=== PATIENT | male | born 1945 | race Caucasian/White ===

== ENCOUNTER 2018-07-19 07:30 | Inpatient (IN) | payer MEDICARE ==
[~2018-07-19] VITALS: Ht 188 cm; Wt 125.9 kg
[~2018-07-19 07:30] MED LIST: ASPI-496 PO; ATOR20TA37 PO; BUPR150T73 PO; CHOL10002 PO; CYCL-259 PO; HYDR-3240 PO; LEUP3.75 INJ; LISI1TAB3 PO; MELA1TAB8 PO; METF500T17 PO; PREG75CA PO; TAMS-11 PO
[2018-07-19] MEDS ORDERED: BACITRACIN 50,000 UNIT ONE (07:51)
[2018-07-19] MEDS ORDERED: THROMBIN 20,000 UNIT VIAL TP ONE (07:51)
[2018-07-19] MEDS ORDERED: NEOSPORIN OINT. PKT 1 PACKET ONE (07:51)
[2018-07-19] MEDS ORDERED: MICROFIBRILLAR COLLAGEN 1 GM TP ONE (07:51)
[2018-07-19] MEDS ORDERED: BUPIVACAINE/EPI 0.5% 1:200K ONE (07:51)
[2018-07-19] MEDS ORDERED: LACTATED RINGERS 1,000 ML IV SCH (14:53)
[2018-07-19] MEDS ORDERED: GABAPENTIN 300 MG CAPSULE PO STA (14:54)
[2018-07-19] MEDS ORDERED: ACETAMINOPHEN 500 MG TABLET PO STA (14:54)
[2018-07-19] MEDS ORDERED: ONDANSETRON ODT 8 MG PO STA (14:54)
[2018-07-19] MEDS ORDERED: PROPOFOL 50 ML ONE ×2 (15:54→17:46)
[2018-07-19] MEDS ORDERED: MIDAZOLAM 1 MG/ML, 2ML ONE (15:55)
[2018-07-19] MEDS ORDERED: FENTANYL PF 250 MCG/5ML ONE (15:55)
[2018-07-19] MEDS ORDERED: PROPOFOL 10 MG/ML, 20ML ONE (15:56)
[2018-07-19] MEDS ORDERED: DEXAMETHASONE 4 MG/ML, 1ML ONE (15:56)
[2018-07-19] MEDS ORDERED: LIDOCAINE-MPF 2% ,5ML ONE (15:59)
[2018-07-19] MEDS ORDERED: LIDOCAINE 4%, 4 ML SYR/CANN TP ONE (16:03)
[2018-07-19] MEDS ORDERED: CEFAZOLIN 1,000 MG ONE (17:07)
[2018-07-19] MEDS ORDERED: SUCCINYLCHOLINE 20 MG/ML, 10ML ONE (17:07)
[2018-07-19] MEDS ORDERED: MEPERIDINE/PF 25MG/0.5ML IVPush PRN (19:30)
[2018-07-19] MEDS ORDERED: ALBUTEROL/IPRATROPIUM 2.5MG/0.5MG, 3 ML NPPB PRN (19:30)
[2018-07-19] MEDS ORDERED: LORazepam 2 MG/ML, 1ML IVPush PRN (19:30)
[2018-07-19] MEDS ORDERED: hydrALAzine 20 MG/ML, 1ML IV PRN (19:30)
[2018-07-19] MEDS ORDERED: LABETALOL 5MG/ML, 20ML IV PRN (19:30)
[2018-07-19] MEDS ORDERED: FENTANYL PF 100 MCG/2ML IV PRN (19:30)
[2018-07-19] MEDS ORDERED: HYDROmorphone 2 MG/ML, 1ML IVPush PRN (19:30)
[2018-07-19] MEDS ORDERED: OXYcodone 5 MG/5 ML ORAL.SOL UDC PO PRN (19:30)
[2018-07-19] MEDS ORDERED: FENTANYL PF 100 MCG/2ML ONE (19:58)
[2018-07-19] MEDS ORDERED: OXYcodone 5 MG/5 ML ORAL.SOL UDC ONE (19:59)
[2018-07-19] MEDS ORDERED: MAGNESIUM HYDROXIDE 8%, 30ML UDC PO PRN (22:00)
[2018-07-19] MEDS ORDERED: morphine SULFATE 10 MG/ML, 1ML IV PRN (22:00)
[2018-07-19] MEDS ORDERED: DIPHENHYDRAMINE 50 MG CAPSULE PO PRN (22:00)
[2018-07-19] MEDS ORDERED: PHARMACY MAY ADJ FOR RENAL FX MC PRN (22:00)
[2018-07-19] MEDS ORDERED: DIPHENHYDRAMINE 50 MG/ML, 1ML IVPush PRN (22:00)
[2018-07-19] MEDS ORDERED: BISACODYL 10 MG SUPP PR PRN (22:00)
[2018-07-19] MEDS ORDERED: CYCLOBENZAPRINE 10 MG TABLET PO PRN (22:00)
[2018-07-19] MEDS ORDERED: ONDANSETRON 2MG/ML, 2ML IV PRN (22:00)
[2018-07-19] MEDS ORDERED: PROMETHAZINE 25 MG/ML, 1ML IM PRN (22:00)
[2018-07-19] MEDS ORDERED: METHOCARBAMOL 1,000 MG in DEXTROSE 5% 100 ML IV ONE (22:00)
[2018-07-19] MEDS ORDERED: DIPHENHYDRAMINE 50 MG/ML, 1ML IM PRN (22:00)
[2018-07-19] MEDS ORDERED: HYDROcodone/APAP 10/325 MG TABLET PO PRN (22:00)
[2018-07-19] MEDS: NS + 20MEQ KCL 1,000 ML IV SCH (22:10)
[2018-07-19] MEDS: PREGABALIN 75 MG CAPSULE PO SCH (22:11)
[2018-07-19] MEDS ORDERED: OXYcodone/APAP 5/325MG TABLET PO PRN (23:45)
[2018-07-20 00:18] VITALS: BP 156/95
[2018-07-20] MEDS: CEFAZOLIN PMX 2GM/50ML 50 ML IVPB SCH ×2 (00:44→09:45)
[2018-07-20 01:01] VITALS: BP 132/65
[2018-07-20] MEDS: HYDROcodone/APAP 5/325 TABLET PO PRN ×3 (03:18→16:14)
[2018-07-20 04:16] VITALS: BP 119/68
[2018-07-20] MEDS: METHOCARBAMOL 750 MG in DEXTROSE 5% 100 ML IV SCH ×2 (05:55→14:03)
[2018-07-20 07:01] VITALS: BP 125/73
[2018-07-20] MEDS: INSULIN REGULAR 100 UNITS/ML, 3ML VIAL SQ-INSULIN SCH ×3 (07:13→16:18)
[2018-07-20] MEDS: NS + 20MEQ KCL 1,000 ML IV SCH (08:38)
[2018-07-20] MEDS ORDERED: HYDROCHLOROTHIAZIDE 12.5 MG CAPSULE PO SCH (09:00)
[2018-07-20] MEDS ORDERED: SENNA/DOCUSATE TABLET PO SCH (09:00)
[2018-07-20] MEDS ORDERED: MAGNESIUM HYDROXIDE 8%, 30ML UDC PO SCH (09:00)
[2018-07-20] MEDS ORDERED: metFORMIN 500 MG TABLET PO SCH (09:00)
[2018-07-20] MEDS ORDERED: BUPROPION SR 150 MG TABLET PO SCH (09:00)
[2018-07-20] MEDS ORDERED: LISINOPRIL 10 MG TABLET PO SCH (09:00)
[2018-07-20] MEDS ORDERED: CHOLECALCIFEROL 1,000 UNIT TABLET PO SCH (09:00)
[2018-07-20] MEDS: PREGABALIN 75 MG CAPSULE PO SCH ×2 (09:02→16:14)
[2018-07-20] MEDS ORDERED: HYDR-3307 PO (09:14)
[2018-07-20 13:09] VITALS: BP 112/64
[2018-07-20] MEDS ORDERED: ATORVASTATIN 20 MG TABLET PO SCH (21:00)
[2018-07-20] MEDS ORDERED: TAMSULOSIN 0.4 MG CAP.ER.24H PO SCH (21:00)
== END 2018-07-20 16:45 | disposition home or self-care (01) | DRG 515 ==
LOC: ORIP 13:55 → 4NOR 20:40 → DCLOUNGE 07-20 16:23
PROVIDERS: ADMIT Neurological Surgery; ATTEND Neurological Surgery
PROC: 01NR0ZZ Release Sacral Nerve, Open Approach (ICD-10-PCS; 2018-07-19)
PROC: 01NB0ZZ Release Lumbar Nerve, Open Approach (ICD-10-PCS; principal; 2018-07-19 16:00)
DX: M48.07 Spinal stenosis, lumbosacral region (principal); R53.2 Functional quadriplegia; M54.17 Radiculopathy, lumbosacral region; M21.379 Foot drop, unspecified foot; I10 Essential (primary) hypertension; E78.5 Hyperlipidemia, unspecified; E11.9 Type 2 diabetes mellitus without complications; Z88.8 Allergy status to other drugs, medicaments and biological substances; Z85.46 Personal history of malignant neoplasm of prostate; M19.90 Unspecified osteoarthritis, unspecified site; Z82.49 Family history of ischemic heart disease and other diseases of the circulatory system; Z80.9 Family history of malignant neoplasm, unspecified
CPT/HCPCS: 72100; 82962; 93005; C1713; G0378; J0690; J1100; J2250; J2704; J3010; J3480; Q0162; J0330; J2800; J7120